=== PATIENT | female | born 1990 | race Caucasian/White ===

== ENCOUNTER 2020-05-17 21:35 | Emergency (ER) | payer BC ==
[~2020-05-17] VITALS: Ht 167.6 cm; Wt 75.0 kg
[~2020-05-17 21:35] MED LIST: CEPHALEXIN250 M1 PO; MOTRIN 600600 MG/TAB PO; PERCOCET 325 MG1 TA2 PO; PRENATAL1 TA1 PO
[2020-05-17 21:42] VITALS: BP 142/91; TEMP 98.2
[2020-05-17 22:26] VITALS: PULSE 75
== END 2020-05-17 22:26 | disposition home or self-care (01) ==
LOC: COL.ER 21:35
DX: S06.0X0A Concussion without loss of consciousness, initial encounter (principal); S00.93XA Contusion of unspecified part of head, initial encounter; R40.2410 Glasgow coma scale score 13-15, unspecified time; Z88.2 Allergy status to sulfonamides; W19.XXXA Unspecified fall, initial encounter

== ENCOUNTER 2022-06-13 10:34 | Emergency (ER) | payer OTHER ==
[~2022-06-13] VITALS: Ht 167.6 cm; Wt 65.5 kg
[2022-06-13 10:49] VITALS: BP 122/76; PULSE 77; TEMP 98.2
[2022-06-13] MEDS ORDERED: KLONOPIN 1MG1 MG PO (10:54)
[2022-06-13] MEDS ORDERED: LUNESTA3 MG PO (10:54)
[2022-06-13] MEDS ORDERED: LAMICTAL200 MG PO (10:54)
[2022-06-13] MEDS ORDERED: INDERAL40 MG PO (10:55)
[2022-06-13] MEDS ORDERED: PRILOSEC 20MG20 MG PO (10:56)
== END 2022-06-13 11:41 | disposition home or self-care (01) ==
LOC: COL.ER 10:34
DX: R13.10 Dysphagia, unspecified (principal)

== ENCOUNTER → 2022-06-20 | Outpatient (CLI) | payer OTHER ==
[~2022-06-20] MED LIST changes: +INDERAL40 MG PO; +KLONOPIN 1MG1 MG PO; +LAMICTAL200 MG PO; +LUNESTA3 MG PO; +PRILOSEC 20MG20 MG PO
== END ==
LOC: COL.RAD 12:46
DX: K22.2 Esophageal obstruction (principal)